=== PATIENT | female | born 1990 | race Hispanic/Latino ===

== ENCOUNTER 2017-08-20 16:35 | Emergency (ER) | payer OTHER ==
[2017-08-20 17:17] LABS: #Eosinphils 0.1 thou/uL (0.0-0.7); #Lymphocytes 1.5 thou/uL (1.20-3.40); #Monocytes 0.4 thou/uL (0.11-0.59); #Neutrophils 4.5 thou/uL (1.40-6.50); %Basophils 0.5 % (0.0-1.0); %Eosinophils 1.1 % (0.0-10.0); %Lymphocytes 22.6 % (21.0-51.0); %Monocytes 6.3 % (0.0-10.0); %Neutrophils 69.5 % (42.0-75.0); Hemoglobin 13.1 g/dL (12.0-16.0); Mean Corpuscular HGB CONC 34.1 g/dL (32.0-36.0); Mean Corpuscular Hemoglobin 30.8 pg (27.0-31.0); Mean Corpuscular Volume 90.3 fl (81.0-99.0); Mean Platelet Volume 7.5 fL (7.4-10.4); Platelet Count 277 thou/uL (130-400); RBC Distribution Width 11.4 % (11.5-14.5); Red Blood Cell (RBC) Count 4.24 mill/uL (4.20-5.40); White Blood Cell (WBC) Count 6.5 thou/uL (4.8-10.8)
[2017-08-20 17:43] LABS: Bilirubin Negative (Negative); Blood, Urine Moderate (Negative); Clarity CLEAR (Clear); Glucose, Urine (Dipstick) Negative (Negative); Leukocyte Negative (Negative); Nitrite Negative (Negative); Protein, Urine (Dipstick) Negative (Neg-Trace); Specific Gravity, Urine 1.034 (1.002-1.036); pH, Urine 5.5 (5.0-9.0)
[2017-08-20 17:45] LABS: Bacteria/HPF Rare-Few HPF (None Seen); Hyaline Casts/LPF 0-3 HYALINE CAST LPF (0-3 Hyaline); Pathc Cast-AUWi Flag 0.58 (0-2.49); Squamous Epithelial 0-3 HPF (0-3); WBC/HPF 0-3 HPF (0-3)
--- NOTE | 2017-08-20 19:48 | ULT ---
PELVIS ULTRASOUND: HISTORY: Pelvic pain. patient. COMPARISON: None. TECHNIQUE: Transabdominal and endovaginal imaging of the pelvis is performed. The ovaries are interrogated with granger-scale, color-flow, Doppler imaging, and spectral wave-form analysis. FINDINGS: The uterus is identified, measuring 9.8 x 5 x 6.2 cm. Within the endometrium, there is a gestational sac and a pole. [place]-rump length is 0.48 cm, corresponding to a gestational age of 6 weeks a nd 1 day. There is possibility of a very small subchorionic bleed. heart tones are absent. The right ovary has a normal echotexture, measuring 2.9 x 3.4 x 1.9 cm. The left ovary is not seen. No significant free fluid in the pelvis. Ovarian Doppler shows vascular flow to the right ovary. IMPRESSION: There is evidence of a single intrauterine gestation. Gestational age of crown-rump length is 6 week s 1 day. heart tones are absent. Differential considerations include an early intrauterine pr egnancy, too early to assess for heart tones. The possibility of a blighted ovum/nonviable pre gnancy cannot be excluded. Very small subchorionic hemorrhage is suggested. Follow-up ultrasounds a nd serial beta hCGs are strongly recommended. POS: [facility] EDUARDO
== END 2017-08-20 20:18 | disposition home or self-care (01) ==
LOC: ERS 16:35
DX: O20.0 Threatened abortion (principal); Z3A.01 Less than 8 weeks gestation of pregnancy
CPT/HCPCS: 36415; 76856; 81003; 81015; 84702; 85025; 86900; 86901

== ENCOUNTER 2019-01-23 13:16 | Outpatient (CLI) | payer OTHER ==
--- NOTE | 2019-01-23 16:00 | ULT ---
OBSTETRICAL ULTRASOUND: 01/23/19 INDICATION: anatomy. COMPARISON: None. FINDINGS: There is a single live intrauterine gestation with vertex presentation. The placenta is in an anterio rly location without evidence of previa. ROMAINE appeared within normal limits. Cardiac activity is noted at 146 beats per minute. The visualized head, heart, stomach, kidneys, bladder, and spine, lips and nose, three vessel c ord and extremities appear within normal limits. The cervical length measures 4.25 cm. Tiny echogenic focus is seen along the distal aspect of the int ernal os which may reflect the mucous plug. The biparietal diameter measured 4.39 cm giving an estimated gestational age of 19 weeks and 2 weeks. The head circumference measures 16.47 cm giving an estimated gestational age of 19 weeks and 2 days. Abdominal circumference measures 13.51 cm giving an estimated gestational age of 19 weeks and 0 days. Femoral length was 3.04 cm given an estimated gestational age of 19 weeks, 3 days. Estimated weight 278 grams (+/- 41 grams)(0 lb. 10 oz.). (4th percentile). The estimated gestational age by ultrasound is 19 weeks and 2 days with estimated due date of 06/17/19 . The estimated gestational age by LMP was 20 weeks and 3 days with estimated due date of 06/09/19. IMPRESSION: 1. Single live intrauterine gestation with size and dates as above. The estimated weight i s 4th percentile. A follow-up examination in one to two weeks for remeasurement of the biometry and reestimation of weight is recommended. Small for gestational age cannot be entirely exclud ed. 2. Remaining portions of the examination appear within normal limits. POS: [facility]
== END 2019-01-23 13:17 | disposition home or self-care (01) ==
LOC: BICULT 13:16
DX: Z34.82 Encounter for supervision of other normal pregnancy, second trimester (principal); Z3A.19 19 weeks gestation of pregnancy
CPT/HCPCS: 76805

== ENCOUNTER 2019-06-14 13:08 | Day surgery (SDC) | payer OTHER ==
[2019-06-14 14:10] VITALS: BMI 30.6
[2019-06-14] MEDS ORDERED: hydrALAZINE 20 MG/ML VIAL SLOW IVP PRN (14:23)
--- NOTE | 2019-06-14 14:28 | PDOC.FPROB ---
FMR OB H&P: HPI - History of Present Illness Chief Complaint: dec FM Indentification: at 40.5 here for dec FM History of Present Illness: 28 yo at 40.5wga here for dec FM since this AM. Has not felt baby move for 4 hours after drinking ice cold water and walking around. No VB/VD/LOF/CTX. No problems during this . No issues in prior . No trauma, recent travel, sick contact exposure. Primary Care Physician: Dr. Loo FMR OB H&P: Current - Care : 5 Para: 4 Gestational age: 40.5 Due date: 06/09/19 - OB Labs Antibody Screen: unknown HIV: unknown RPR: unknown HepBsAg: unknown Quad screen: unknown Gonorrhea: unknown Chlamydia: unknown GBS: unknown FMR OB H&P: History - Past Medical History PMH: Denies - OB History OB History: Denies any issues during this or prior 3 term SVDs 1 SAB - STORM CHASER History STORM CHASER History: Denies - Surgical History Sx History: Denies - Social History Social History: Denies TAD - Family History Family History: Non contributory FMR OB H&P: Medications - Current Home Medications: Medication Instructions Recorded Confirmed Type Pnv No.121/Iron/Folic Acid 1 each PO 06/14/19 History [ Multivitamin Tablet] Allergies/Adverse Reactions: Allergies Allergy/AdvReac Type Severity Reaction Status Date / Time No Known Allergies Allergy Verified 06/14/19 14:03 FMR OB H&P: ROS - Review of Systems General: denies: fever/chills, weight/appetite/sleep changes ENT: denies: nasal congestion, rhinorrhea, sore throat Cardiovascular: denies: chest pain, edema Respiratory: denies: cough, congestion, shortness of breath Gastrointestinal: denies: abdominal pain, nausea, vomiting Genitourinary (Female): denies: dysuria, vaginal discharge, vaginal pain, vaginal bleeding, contractions, vaginal pressure Musculoskeletal: denies: stiffness, redness Neurologic: denies: seizures, weakness Integumentary: denies: rash, lesions, discoloration Psychological: denies: depression, anxiety FMR OB H&P: Vital Signs - Maternal Vital signs: Vital signs stable 130/59 98.5F 98BPM - Heart Tones Baseline: 130 Variability: moderate Acceleration: present Deceleration: absent FMR OB H&P: Physical Exam - Physical Exam General: NAD, awake, alert and oriented HEENT: normocephalic and atraumatic, EOMI, MMM, conjunctiva clear Neck: supple, FROM, trachea midline Heart: RRR, normal S1/S2 General: CTAB, no respiratory distress, good air movement, no retractions Abdomen: soft, gravid Skin: no rash, good tugor, capillary refill <2 seconds Lymphatic: no unusual bruising or bleeding, no purpura Psychiatric: intact recent and remote memory, good judgement and insight FMR OB H&P: A/P - Problem List (1) 40 weeks gestation of Status: Acute Code(s): Z3A.40 - 40 WEEKS GESTATION OF Discussion: Date/Time: 06/14/19 5546 1. sIUP at 40 weeks- dec FM -FHT: reactive & reassuring -Endorsing FM when monitors placed -no signs of labor Will d/c home, gave labor precuations. F/u with Dr. Loo Sunday for further managemetn of labor. This H&P was discussed with Dr. Neri who agree with the above documentation and plan. Addendum - Attending - Attending Attestation Date/Time: 06/14/19 1820 I personally evaluated the patient and discussed the management with Dr. Neri I agree with the History, Examination, Assessment and Plan documented above with any addition or exceptions noted below.
== END 2019-06-14 14:33 | disposition home or self-care (01) ==
LOC: L&D/OP 13:08
PROVIDERS: ATTEND Family Medicine
DX: O36.8130 Decreased fetal movements, third trimester, not applicable or unspecified (principal); O48.0 Post-term pregnancy; Z3A.40 40 weeks gestation of pregnancy
CPT/HCPCS: 99282

== ENCOUNTER 2019-06-19 05:38 | Inpatient (IN) | payer MEDICAID, OTHER, SELFPAY ==
[2019-06-19 06:49] VITALS: BMI 30.6
[2019-06-19] MEDS ORDERED: FLU VACC QS2019-20(6MOS UP)/PF 60 MCG/0.5 ML SYRINGE IM ONE (07:15)
[2019-06-19] MEDS ORDERED: HYDROcodone/Acetaminophen 5/325 mg Tablet PO PRN ×3 (07:17→17:12)
[2019-06-19] MEDS ORDERED: Promethazine HCl 25 MG/ML VIAL IM PRN ×3 (07:17→17:12)
[2019-06-19] MEDS ORDERED: Ibuprofen 800 MG TAB PO PRN (07:17)
[2019-06-19] MEDS ORDERED: Methylergonovine 0.2 MG/ML VIAL IM PRN (07:17)
[2019-06-19] MEDS ORDERED: Ondansetron PF 4 MG/2 ML Vial IVP PRN ×3 (07:17→17:12)
[2019-06-19] MEDS ORDERED: hydrALAZINE 20 MG/ML VIAL SLOW IVP PRN ×2 (07:17→17:12)
[2019-06-19] MEDS ORDERED: Misoprostol 200 MCG TAB PR PRN (07:17)
[2019-06-19] MEDS ORDERED: Butorphanol Tartrate 1 MG/ML VIAL SLOW IVP PRN (07:17)
[2019-06-19] MEDS ORDERED: Lidocaine 1% (PF) 30 ML VIAL SC PRN (07:17)
[2019-06-19] MEDS ORDERED: Diphenoxylate HCl/Atropine Tablet PO PRN (07:17)
[2019-06-19] MEDS ORDERED: NS w/ Oxytocin 10 units 500 ML ONE (07:27)
[2019-06-19] MEDS ORDERED: Oxytocin 10 UNITS/ML VIAL ONE (07:27)
[2019-06-19] MEDS ORDERED: NS w/ Oxytocin 10 units 500 ML IV SCH ×2 (07:30)
[2019-06-19 08:25] LABS: Hemoglobin 10.7 g/dL (12.0-16.0); Mean Corpuscular HGB CONC 32.8 g/dL (32.0-36.0); Mean Corpuscular Hemoglobin 27.6 pg (27.0-31.0); Mean Corpuscular Volume 84.2 fL (78.0-98.0); Mean Platelet Volume 7.7 fL (7.4-10.4); Platelet Count 331 thou/uL (130-400); RBC Distribution Width 13.7 % (11.5-14.5); Red Blood Cell (RBC) Count 3.87 mill/uL (4.20-5.40); White Blood Cell (WBC) Count 6.8 thou/uL (4.8-10.8)
[2019-06-19 09:12] LABS: HBSAg Index 0.23 S/CO (0-0.99); Hep B Surf Ag Non-Reactive S/CO (NonReactive)
[2019-06-19] MEDS: Lactated Ringer's 1,000 ML IV SCH ×2 (09:13→14:14)
[2019-06-19 09:19] LABS: Syphilis Antibody Nonreactive (Nonreactive); Syphilis Antibody Index 0.04 S/CO (<1.00 Non-Reactive)
[2019-06-19] MEDS ORDERED: Fentanyl 4 mcg/Bup 0.1% Cadd 100 ML ONE ×2 (10:14→14:42)
[2019-06-19] MEDS ORDERED: Bupivacaine 0.25% 10 ML VIAL ONE (10:34)
[2019-06-19] MEDS ORDERED: Naloxone HCl 0.4 mg/ml Vial IVP PRN ×2 (10:34)
[2019-06-19] MEDS ORDERED: diphenhydrAMINE 50 MG/ML VIAL IVP PRN (10:34)
[2019-06-19] MEDS ORDERED: Acetaminophen 325 MG TAB PO PRN (10:34)
[2019-06-19] MEDS ORDERED: EPHEDRINE 25 MG/5 ML SYRINGE SLOW IVP PRN (10:34)
[2019-06-19] MEDS ORDERED: Lactated Ringer's 500 ML IV PRN (10:34)
[2019-06-19] MEDS ORDERED: Fentanyl 4 mcg/Bupivacaine 0.1% Cassette 100 ML EPIDURAL SCH (10:45)
[2019-06-19] MEDS ORDERED: Communication Order-Pharmacy FS SCH (10:45)
[2019-06-19] MEDS: NS / Oxytocin 40 units/1000ml 1,000 ML IV PRN ×2 (12:29→13:41)
[2019-06-19] MEDS: Carboprost 250 MCG/ML AMP IM PRN ×3 (13:27→14:07)
[2019-06-19] MEDS ORDERED: Carboprost 250 MCG/ML AMP ONE ×2 (13:40→14:05)
[2019-06-19] MEDS ORDERED: Tranexamic Acid 1,000 MG/10 ML VIAL ONE ×2 (13:56→14:24)
[2019-06-19] MEDS ORDERED: Azithromycin 1,000 MG in Sodium Chloride 0.9% 500 ML IVPB SCH (14:15)
[2019-06-19] MEDS ORDERED: Tranexamic Acid 1,000 MG in Sodium Chloride 0.9% 250 ML 100 ML IVPB SCH (14:15)
[2019-06-19] MEDS ORDERED: Carboprost 250 MCG/ML AMP IM PRN (14:15)
[2019-06-19] MEDS ORDERED: Tranexamic Acid 1,000 MG in Sodium Chloride 0.9% 100 ML IVPB SCH (15:15)
[2019-06-19] MEDS: metroNIDAZOLE 500 MG in Premix Bag 1 BAG IVPB SCH ×2 (15:37→21:52)
[2019-06-19] MEDS ORDERED: Benzocaine-Menthol 82.5 ML CAN TOP PRN (17:12)
[2019-06-19] MEDS ORDERED: Bisacodyl 10 MG SUPP PR PRN (17:12)
[2019-06-19] MEDS ORDERED: diphenhydrAMINE 25 MG CAP PO PRN (17:12)
[2019-06-19] MEDS ORDERED: Milk Of Magnesia 30 ML UDCUP PO PRN (17:12)
[2019-06-19] MEDS ORDERED: Lanolin Ointment 7 GM TUBE TOP PRN (17:12)
[2019-06-19] MEDS ORDERED: NS / Oxytocin 40 units/1000ml 1,000 ML IV SCH (18:30)
[2019-06-19] MEDS ORDERED: Ferrous Sulfate 325 MG TAB PO SCH (18:45)
[2019-06-19] MEDS ORDERED: Ibuprofen 800 MG TAB PO SCH (18:45)
[2019-06-19] MEDS: Docusate Calcium (SURFAK) 240 MG CAP PO SCH (20:53)
[2019-06-20] MEDS: Ibuprofen 800 MG TAB PO SCH ×2 (05:37→13:37)
[2019-06-20] MEDS: metroNIDAZOLE 500 MG in Premix Bag 1 BAG IVPB SCH ×2 (05:37→13:37)
[2019-06-20 06:06] LABS: Hemoglobin 8.1 g/dL (12.0-16.0); Mean Corpuscular HGB CONC 34.6 g/dL (32.0-36.0); Mean Corpuscular Hemoglobin 28.7 pg (27.0-31.0); Mean Corpuscular Volume 82.9 fL (78.0-98.0); Mean Platelet Volume 7.6 fL (7.4-10.4); Platelet Count 216 thou/uL (130-400); RBC Distribution Width 13.6 % (11.5-14.5); Red Blood Cell (RBC) Count 2.83 mill/uL (4.20-5.40); White Blood Cell (WBC) Count 7.2 thou/uL (4.8-10.8)
[2019-06-20] MEDS: Ferrous Sulfate 325 MG TAB PO SCH ×2 (08:26→16:48)
[2019-06-20] MEDS: Docusate Calcium (SURFAK) 240 MG CAP PO SCH (08:27)
[2019-06-20] MEDS ORDERED: Prenatal Vitamin 1 TAB PO SCH (09:00)
[2019-06-20] MEDS ORDERED: Adacel (T-DAP) 0.5 ML SYRINGE IM ONE (09:00)
[2019-06-20 20:36] VITALS: BP 109/61; TEMP 98.7
== END 2019-06-20 19:55 | disposition home or self-care (01) | DRG 806 ==
LOC: L&D 05:38 → 3SE 18:35
PROVIDERS: ADMIT Family Medicine; ATTEND Family Medicine
PROC: 10E0XZZ Delivery of Products of Conception, External Approach (ICD-10-PCS; principal; 2019-06-19)
PROC: 0HQ9XZZ Repair Perineum Skin, External Approach (ICD-10-PCS; 2019-06-19)
DX: O48.0 Post-term pregnancy (principal); O72.1 Other immediate postpartum hemorrhage; Z37.0 Single live birth; Z3A.41 41 weeks gestation of pregnancy; O71.82 Other specified trauma to perineum and vulva
CPT/HCPCS: 36415; 85027; 86780; 86850; 86900; 86901; 87340; J0456; J2210; J2590; J3490; J7050; S0020